=== PATIENT | male | born 2000 | race African-American/Black ===

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

== ENCOUNTER 2021-06-04 15:17 | Emergency (ER) | payer SELFPAY ==
[2021-06-04] MEDS ORDERED: Ondansetron ODT 4 MG TAB ONE (16:15)
[2021-06-04] MEDS ORDERED: Acetaminophen 500 MG TAB ONE ×2 (16:15→17:44)
[2021-06-04] MEDS ORDERED: Ondansetron PF 4 MG/2 ML Vial ONE (16:37)
[2021-06-05 21:30] LABS: SARS-CoV-2 PCR by NAA DETECTED (NotDetected)
== END 2021-06-04 18:40 | disposition home or self-care (01) ==
LOC: ERS 15:17
DX: U07.1 COVID-19 (principal)
CPT/HCPCS: 96374; J2405; Q0162; U0003; U0005

== ENCOUNTER 2021-09-28 23:48 | Emergency (ER) | payer SELFPAY | END 2021-09-29 02:27 | disposition left against medical advice (07) | LOC: ERS 23:48 | DX: Z53.21 Procedure and treatment not carried out due to patient leaving prior to being seen by health care provider (principal) ==

== ENCOUNTER 2021-11-19 13:02 | Emergency (ER) | payer SELFPAY | END 2021-11-19 15:05 | disposition home or self-care (01) | LOC: ERS 13:02 | DX: M54.50 Low back pain, unspecified (principal) | CPT/HCPCS: 99283 ==